=== PATIENT | female | born 1945 | race Caucasian/White ===

== ENCOUNTER → 2016-04-06 | Outpatient (CLI) | payer OTHER, BC ==
--- NOTE | 2016-04-06 11:58 | US ---
Ultrasound Pelvis Complete (Transabdominal and Endovaginal) Including Duplex/Doppler Imaging History: R 10.31, right lower quadrant pain Technique: Transabdominal and endovaginal ultrasound images were obtained. Endovaginal images obtain ed for better evaluation of the uterine myometrium and adnexa. Duplex/Doppler imaging of adnexa. Findings: Uterus measures 7 x 3 x 3 cm. Endometrial thickness is 2 mm. A few nabothian cysts in the cervix. Calcified arcuate uterine arteries. No definite uterine leiomyomata. Right ovary measures 1.1 x 1 x 0.9 cm. Left ovary measures 1.6 x 1.1 x 0.5 cm. No adnexal masses. No significant free fluid in the pelvis. Color Doppler flow to both ovaries without torsion. Impression: Normal ultrasound pelvis.
== END ==
LOC: BRMIMAGING 10:40
PROVIDERS: ATTEND Nurse Practitioner Family
DX: R10.31 Right lower quadrant pain (principal)
CPT/HCPCS: 76856-PO

== ENCOUNTER → 2016-06-16 | Outpatient (CLI) | payer OTHER, BC ==
[~2016-06-16] MED LIST: IOPAMIDOL (ISOVUE-300) 100 ML BTL IV ONE
== END ==
LOC: FIMAGING 09:46
PROVIDERS: ATTEND Family Medicine
DX: R10.31 Right lower quadrant pain (principal); Z79.899 Other long term (current) drug therapy; M51.36 Other intervertebral disc degeneration, lumbar region; M51.37 Other intervertebral disc degeneration, lumbosacral region
CPT/HCPCS: 74177; Q9967

== ENCOUNTER → 2016-08-04 | Outpatient (CLI) | payer OTHER, BC | LOC: FIMAGING 11:42 | PROVIDERS: ATTEND Family Medicine | DX: R91.1 Solitary pulmonary nodule (principal); J84.10 Pulmonary fibrosis, unspecified ==

== ENCOUNTER → 2017-07-19 | Outpatient (CLI) | payer OTHER, BC | LOC: FIMAGING 13:59 | PROVIDERS: ATTEND Family Medicine | DX: M25.552 Pain in left hip (principal); M51.36 Other intervertebral disc degeneration, lumbar region; M51.37 Other intervertebral disc degeneration, lumbosacral region; M53.3 Sacrococcygeal disorders, not elsewhere classified ==

== ENCOUNTER → 2018-05-15 | Outpatient (CLI) | payer OTHER, BC | LOC: FIMAGING 15:20 | PROVIDERS: ATTEND Family Medicine | DX: S22.39XD Fracture of one rib, unspecified side, subsequent encounter for fracture with routine healing (principal) ==

== ENCOUNTER → 2018-05-30 | Outpatient (CLI) | payer OTHER, BC | LOC: BHFA 11:30 | PROVIDERS: ATTEND Internal Medicine Cardiovascular Disease | DX: R06.02 Shortness of breath (principal) ==